=== PATIENT | female | born 1960 | race Two or more races ===

== ENCOUNTER 2024-10-15 16:44 | Emergency (ER) | payer OTHER ==
[~2024-10-15] VITALS: Ht 162.6 cm; Wt 78.0 kg
[2024-10-15] MEDS ORDERED: METFORMIN HCL500 M3 (16:54)
[2024-10-15] MEDS ORDERED: PLAVIX75 MG (16:55)
[2024-10-15] MEDS ORDERED: CLONAZEPAM0.125 MG (16:55)
[2024-10-15] MEDS ORDERED: [UNRECOGNIZED DRUG - OTHER] (16:56)
[2024-10-15] MEDS ORDERED: OxyCODONE HCL/APAP UD (PERCOCET) PO ONE (17:45)
[2024-10-15] MEDS ORDERED: ORPHENADRINE CITRATE 30 MG/ML AMPUL IM ONE (17:45)
[2024-10-15] MEDS ORDERED: ORPHENADRINE CITRATE 30 MG/ML AMPUL ONE (18:27)
[2024-10-15] MEDS ORDERED: NORFLEX100MG PO (20:00)
== END 2024-10-15 20:36 ==
LOC: ER 16:44
DX: S30.0XXA Contusion of lower back and pelvis, initial encounter (principal); S70.01XA Contusion of right hip, initial encounter; W18.39XA Other fall on same level, initial encounter; Y93.89 Activity, other specified; Y92.832 Beach as the place of occurrence of the external cause; Y99.9 Unspecified external cause status; M51.369 Other intervertebral disc degeneration, lumbar region without mention of lumbar back pain or lower extremity pain; E11.9 Type 2 diabetes mellitus without complications; Z79.84 Long term (current) use of oral hypoglycemic drugs; Z88.2 Allergy status to sulfonamides; M79.7 Fibromyalgia; M85.88 Other specified disorders of bone density and structure, other site
CPT/HCPCS: 72100; 73502; 73521; 96372; 99284; J2360